=== PATIENT | male | born 1955 | race Caucasian/White ===

== ENCOUNTER 2018-10-14 08:30 | Emergency (ER) | payer BC ==
[~2018-10-14 08:30] MED LIST: ACET-1966 PO; FISH1CAP15 PO; HYDR-385 PO; KET10 PO; MULT-1335 PO; OMEP-126 PO
--- NOTE | 2018-10-14 08:33 | ER Report ---
History and Physical Time Seen By MD: 08:32 HPI/ROS CHIEF COMPLAINT: Abdominal pain HISTORY OF PRESENT ILLNESS: Patient is a 63-year-old male who states since Tuesday he's noted bilateral lower abdominal pain as well as suprapubic discomfort. He states that his current pain level is 4 out of 10 in intensity but it does go up to 80 at times. Last meal was last evening. He states that over the past 2 days the pain has become more persistent. He denies any change in his bowel movements. Denies any dysuria or hematuria. Denies fevers or chills denies nausea vomiting or diarrhea. No similar episodes in the past patient states that he has not had similar episodes in the past. REVIEW OF SYSTEMS: Constitutional: No fever, no chills. Eyes: No discharge. ENT: No sore throat. Cardiovascular: No chest pain, no palpitations. Respiratory: No cough, no shortness of breath. Gastrointestinal: Abdominal discomfort, no nausea or vomiting Genitourinary: No hematuria. Musculoskeletal: No back pain. Skin: No rashes. Neurological: No headache. Allergies: Coded Allergies: No Known Drug Allergies (Unverified , 08/23/15) Home Meds Active Scripts Hydrocodone Bit/Acetaminophen (HYDROCODON-ACETAMINOPHEN 5-325) 1 Each Tablet, 1 EACH PO Q6H PRN for PAIN, #12 TAB 0 Refills Prov:MARICRUZ WAGONER MD 10/14/18 Ondansetron Hcl (ZOFRAN) 4 Mg Tablet, 4 MG PO Q8H for Nausea, #15 TAB 0 Refills Prov:MARICRUZ WAGONER MD 10/14/18 Metronidazole (FLAGYL) 500 Mg Tablet, 500 MG PO BID, #14 TAB 0 Refills Prov:MARICRUZ WAGONER MD 10/14/18 Ciprofloxacin Hcl 500 Mg Tab (CIPRO 500 MG TAB) 500 Mg Tablet, 500 MG PO BID, #14 TAB 0 Refills Prov:MARICRUZ WAGONER MD 10/14/18 Omeprazole (OMEPRAZOLE) 20 Mg Capsule., 1 CAP PO QDAY, #30 CAP Prov:ARNULFO CARCAMO 08/23/15 Reported Medications Multivitamin With Minerals (MULTIPLE VITAMIN) 1 Each Tablet, 1 EACH PO DAILY 12/19/12 Past Medical/Surgical History Noncontributory Hx Smoking: No Smoking Status: Never Smoker Exposure to Second Hand Smoke?: No Constitutional Vital Sign - Last 24 Hours 10/14/18 10/14/18 10/14/18 10/14/18 08:30 08:37 08:39 09:00 Temp 99.6 Pulse ??? 87 86 Resp 20 B/P (MAP) 131/89 (103) 131/89 118/81 (93) Pulse Ox 95 91 O2 Delivery Room Air 10/14/18 10/14/18 10/14/18 10:00 10:30 10:35 Pulse 77 83 B/P (MAP) 127/116 (120) Pulse Ox 92 91 Physical Exam General Appearance: The patient is alert, has no immediate need for airway protection and no signs of toxicity. Eyes: Pupils equal and round no pallor or injection. ENT, Mouth: Mucous membranes are moist. Respiratory: There are no retractions, lungs are clear to auscultation. Cardiovascular: Regular rate and rhythm. [ ] Gastrointestinal: Abdomen is soft and non tender, no masses, bowel sounds normal. Neurological: Awake and alert Skin: Warm and dry, no rashes. Musculoskeletal: Neck is supple non tender. Extremities are nontender, nonswollen and have full range of motion. Medical Decision Making Data Points Result Diagram: 10/14/18 0935 10/14/18 0935 Laboratory Hematology Test 10/14/18 08:32 10/14/18 09:35 Urine Color Yellow Urine Clarity Slightly-cloudy Urine pH 5.0 pH (4.8-9.5) Urine Specific [place] 1.008 Urine Protein Negative mg/dL (NEGATIVE) Urine Glucose (UA) Negative mg/dL (NEGATIVE) Urine Ketones Negative mg/dL (NEGATIVE) Urine Blood Negative (NEGATIVE) Urine Nitrite Negative (NEGATIVE) Urine Bilirubin Negative (NEGATIVE) Urine Urobilinogen Negative mg/dL (0.2-1.9) Urine Leukocyte Esterase Negative (NEGATIVE) Urine RBC <1 /HPF (0-2/HPF) Urine WBC <1 /HPF (0-5/HPF) Urine Squamous Epithelial Cells None /LPF (</=FEW) Urine Bacteria Negative /HPF (NONE-FEW) Urine Mucus None /HPF (NONE-FEW) Red Blood Count 4.78 M/uL (4.00-5.60) Mean Corpuscular Volume 93.5 fL (80.0-96.0) Mean Corpuscular Hemoglobin 32.0 pg (26.0-33.0) Mean Corpuscular Hemoglobin Concent 34.2 g/dL (32.0-36.0) Red Cell Distribution Width 14.2 % (11.5-14.5) Mean Platelet Volume 7.4 fL (7.2-11.1) Neutrophils (%) (Auto) 73.7 % (39.4-72.5) Lymphocytes (%) (Auto) 17.2 % (17.6-49.6) Monocytes (%) (Auto) 7.6 % (4.1-12.4) Eosinophils (%) (Auto) 0.3 % (0.4-6.7) Basophils (%) (Auto) 1.2 % (0.3-1.4) Nucleated RBC Relative Count (auto) 0.0 /100WBC Neutrophils # (Auto) 7.8 K/uL (2.0-7.4) Lymphocytes # (Auto) 1.8 K/uL (1.3-3.6) Monocytes # (Auto) 0.8 K/uL (0.3-1.0) Eosinophils # (Auto) 0.0 K/uL (0.0-0.5) Basophils # (Auto) 0.1 K/uL (0.0-0.1) Nucleated RBC Absolute Count (auto) 0.00 K/uL Sodium Level 142 mmol/L (137-145) Potassium Level 3.9 mmol/L (3.5-5.0) Chloride Level 107 mmol/L (98-107) Carbon Dioxide Level 22 mmol/L (22-30) Blood Urea Nitrogen 14 mg/dl (9-21) Creatinine 1.00 mg/dl (0.66-1.25) Glomerular Filtration Rate Calc > 60.0 Random Glucose 103 mg/dl (75-110) Calcium Level 9.2 mg/dl (8.4-10.2) Total Bilirubin 0.8 mg/dl (0.2-1.3) Aspartate Amino Transf (AST/SGOT) 22 U/L (0-35) Alanine Aminotransferase (ALT/SGPT) 37 U/L (0-56) Alkaline Phosphatase 69 U/L (0-126) Total Protein 7.2 g/dl (6.3-8.2) Albumin 4.3 g/dl (3.5-5.0) Lipase 45 U/L (23-300) Chemistry Test 10/14/18 08:32 10/14/18 09:35 Urine Color Yellow Urine Clarity Slightly-cloudy Urine pH 5.0 pH (4.8-9.5) Urine Specific [place] 1.008 Urine Protein Negative mg/dL (NEGATIVE) Urine Glucose (UA) Negative mg/dL (NEGATIVE) Urine Ketones Negative mg/dL (NEGATIVE) Urine Blood Negative (NEGATIVE) Urine Nitrite Negative (NEGATIVE) Urine Bilirubin Negative (NEGATIVE) Urine Urobilinogen Negative mg/dL (0.2-1.9) Urine Leukocyte Esterase Negative (NEGATIVE) Urine RBC <1 /HPF (0-2/HPF) Urine WBC <1 /HPF (0-5/HPF) Urine Squamous Epithelial Cells None /LPF (</=FEW) Urine Bacteria Negative /HPF (NONE-FEW) Urine Mucus None /HPF (NONE-FEW) White Blood Count 10.5 k/uL (4.5-11.0) Red Blood Count 4.78 M/uL (4.00-5.60) Hemoglobin 15.3 g/dL (14.0-18.0) Hematocrit 44.7 % (42.0-52.0) Mean Corpuscular Volume 93.5 fL (80.0-96.0) Mean Corpuscular Hemoglobin 32.0 pg (26.0-33.0) Mean Corpuscular Hemoglobin Concent 34.2 g/dL (32.0-36.0) Red Cell Distribution Width 14.2 % (11.5-14.5) Platelet Count 187 K/uL (150-450) Mean Platelet Volume 7.4 fL (7.2-11.1) Neutrophils (%) (Auto) 73.7 % (39.4-72.5) Lymphocytes (%) (Auto) 17.2 % (17.6-49.6) Monocytes (%) (Auto) 7.6 % (4.1-12.4) Eosinophils (%) (Auto) 0.3 % (0.4-6.7) Basophils (%) (Auto) 1.2 % (0.3-1.4) Nucleated RBC Relative Count (auto) 0.0 /100WBC Neutrophils # (Auto) 7.8 K/uL (2.0-7.4) Lymphocytes # (Auto) 1.8 K/uL (1.3-3.6) Monocytes # (Auto) 0.8 K/uL (0.3-1.0) Eosinophils # (Auto) 0.0 K/uL (0.0-0.5) Basophils # (Auto) 0.1 K/uL (0.0-0.1) Nucleated RBC Absolute Count (auto) 0.00 K/uL Glomerular Filtration Rate Calc > 60.0 Calcium Level 9.2 mg/dl (8.4-10.2) Total Bilirubin 0.8 mg/dl (0.2-1.3) Aspartate Amino Transf (AST/SGOT) 22 U/L (0-35) Alanine Aminotransferase (ALT/SGPT) 37 U/L (0-56) Alkaline Phosphatase 69 U/L (0-126) Total Protein 7.2 g/dl (6.3-8.2) Albumin 4.3 g/dl (3.5-5.0) Lipase 45 U/L (23-300) Urinalysis Test 10/14/18 08:32 Urine Color Yellow Urine Clarity Slightly-cloudy Urine pH 5.0 pH (4.8-9.5) Urine Specific [place] 1.008 Urine Protein Negative mg/dL (NEGATIVE) Urine Glucose (UA) Negative mg/dL (NEGATIVE) Urine Ketones Negative mg/dL (NEGATIVE) Urine Blood Negative (NEGATIVE) Urine Nitrite Negative (NEGATIVE) Urine Bilirubin Negative (NEGATIVE) Urine Urobilinogen Negative mg/dL (0.2-1.9) Urine Leukocyte Esterase Negative (NEGATIVE) Urine RBC <1 /HPF (0-2/HPF) Urine WBC <1 /HPF (0-5/HPF) Urine Squamous Epithelial Cells None /LPF (</=FEW) Urine Bacteria Negative /HPF (NONE-FEW) Urine Mucus None /HPF (NONE-FEW) EKG/Imaging Imaging FACILITY: [facility] PATIENT NAME: Phi Arzate : 1955 MR: [id number] V: [id number] EXAM DATE: [id number] ORDERING PHYSICIAN: MARICRUZ WAGONER TECHNOLOGIST: Location: [facility] [place] Patient: Phi Arzate : 1955 Visit/Account:[id number] Date of Sevice: 10/14/2018 CT scan of the abdomen and pelvis with contrast. HISTORY: Suprapubic pain. COMPARISON: None. 3 mm and [address] images were obtained of the abdomen and pelvis using 75 mL intravenous Isovue-370. No oral contrast. One of the following dose optimization techniques was utilized in the performance of this exam: Automated exposure control; adjustment of the mA and/or kV according to the patient's size; or use of an iterative reconstruction technique. Specific details can be referenced in the facility's radiology CT exam operational policy. FINDINGS: Minimal streaky densities are present in the lung bases. The liver and spleen are normal in size. The gallbladder is incompletely distended. The bile ducts are unremarkable. The pancreas is normal in size. The portal vein is patent. The kidneys and adrenal glands are normal in size. No hydronephrosis. The abdominal aorta is normal in size and mildly calcified. No bulky abdominal or pelvic adenopathy. A moderate number of diverticula are scattered in the sigmoid colon. Diffuse mural thickening is present in the sigmoid colon from the rectosigmoid junction to the junction with the descending colon. Moderate stranding is present in the pericolonic fat of the sigmoid colon. No discrete pericolonic fluid collections. The inflamed sigmoid colon causes mild compression of the left side of the urinary bladder. The prostate gland is minimally heterogeneous and upper limits of normal in size. Degenerative changes are present in the spine the appendix is normal in size. IMPRESSION: Moderate colonic diverticulosis. Sigmoid diverticulitis. An underlying neoplastic process cannot be completely excluded. Negative for evidence of peridiverticular abscess. Results were discussed with MARICRUZ WAGONER at 10/14/2018 10:46 AM. Report Dictated By: To Jolley MD at 10/14/2018 10:38 AM Report E-Signed By: To Jolley MD at 10/14/2018 10:48 AM WSN:[id number] ED Course/Re-evaluation ED Course 10/14/2018 9:04:25 am patient with lower abdominal pain differential diagnosis includes but is not limited to sigmoid diverticulitis, cystitis, colitis, appendicitis. Plan at this time will be abdominal workup along with CT scan of the abdomen and pelvis. Decision to Disposition Date: Oct 14, 2018 Decision to Disposition Time: 10:57 Depart Departure Latest Vital Signs Vital Signs Date Time Temp Pulse Resp B/P (MAP) Pulse Ox O2 Delivery O2 Flow Rate FiO2 10/14/18 10:35 83 91 10/14/18 10:30 127/116 (120) 10/14/18 08:39 99.6 20 Room Air Impression: Primary Impression: Diverticulitis Condition: Stable Disposition: HOME OR SELF-CARE Referrals: ELSI ENCARNACION MD (PCP) folow up in one week if symptoms persist New Scripts Ondansetron Hcl (ZOFRAN) 4 Mg Tablet 4 MG PO Q8H for Nausea, #15 TAB 0 Refills Prov: MARICRUZ WAGONER MD 10/14/18 Metronidazole (FLAGYL) 500 Mg Tablet 500 MG PO BID, #14 TAB 0 Refills Prov: MARICRUZ WAGONER MD 10/14/18 Ciprofloxacin Hcl 500 Mg Tab (CIPRO 500 MG TAB) 500 Mg Tablet 500 MG PO BID, #14 TAB 0 Refills Prov: MARICRUZ WAGONER MD 10/14/18 Patient Instructions: Diverticulitis (DC), Diverticulitis Diet (ED) Additional Instructions: Return to the emergency department if her symptoms worsen at any time including fever, worsening abdominal pain or if you develop bloody diarrhea. MARICRUZ WAGONER MD Oct 14, 2018 08:33
[2018-10-14] MEDS ORDERED: NS(*) 0.9% 1000 ML BAG 1,000 ML IV ONE (08:56)
[2018-10-14] MEDS ORDERED: IOPAMIDOL 76% 100 ML INFUS BTL 100 ML ONE (09:10)
[2018-10-14 09:48] LABS: PLATELET COUNT, AUTOMATED 187 K/uL (150-450)
[2018-10-14 10:30] VITALS: BP 127/116
--- NOTE | 2018-10-14 10:52 | RADIOLOGY IMAGING REPORT ---
FACILITY: [facility] [place] PATIENT NAME: Phi Arzate : 1955 MR: [id number] V: [id number] EXAM DATE: ORDERING PHYSICIAN: MARICRUZ WAGONER TECHNOLOGIST: Location: [facility] Patient: Phi Arzate : 1955 Visit/Account:[id number] Date of Sevice: 10/14/2018 CT scan of the abdomen and pelvis with contrast. HISTORY: Suprapubic pain. COMPARISON: None. 3 mm and [address] images were obtained of the abdomen and pelvis using 75 mL intravenous I sovue-370. No oral contrast. One of the following dose optimization techniques was utilized in the pe rformance of this exam: Automated exposure control; adjustment of the mA and/or kV according to the p atient's size; or use of an iterative reconstruction technique. Specific details can be referenced in the facility's radiology CT exam operational policy. FINDINGS: Minimal streaky densities are present in the lung bases. The liver and spleen are normal in size. The gallbladder is incompletely distended. The bile ducts ar e unremarkable. The pancreas is normal in size. The portal vein is patent. The kidneys and adrenal gl ands are normal in size. No hydronephrosis. The abdominal aorta is normal in size and mildly calcifie d. No bulky abdominal or pelvic adenopathy. A moderate number of diverticula are scattered in the sigmoid colon. Diffuse mural thickening is pres ent in the sigmoid colon from the rectosigmoid junction to the junction with the descending colon. Mo derate stranding is present in the pericolonic fat of the sigmoid colon. No discrete pericolonic flui d collections. The inflamed sigmoid colon causes mild compression of the left side of the urinary garo dder. The prostate gland is minimally heterogeneous and upper limits of normal in size. Degenerative changes are present in the spine the appendix is normal in size. IMPRESSION: Moderate colonic diverticulosis. Sigmoid diverticulitis. An underlying neoplastic process cannot be completely excluded. Negative for evidence of peridiverticular abscess. Results were discussed with MARICRUZ WAGONER at 10/14/2018 10:46 AM. Report Dictated By: To Jolley MD at 10/14/2018 10:38 AM Report E-Signed By: To Jolley MD at 10/14/2018 10:48 AM WSN:[id number]
[2018-10-14] MEDS ORDERED: CIPR-344 PO ×2 (11:00→11:13)
[2018-10-14] MEDS ORDERED: METR-1 PO ×2 (11:00→11:13)
[2018-10-14] MEDS ORDERED: ONDA4TAB97 PO ×2 (11:00→11:13)
[2018-10-14] MEDS ORDERED: LOR5/325 PO ×2 (11:00→11:13)
== END 2018-10-14 11:09 | disposition home or self-care (01) ==
LOC: ER 08:36
DX: K57.92 Diverticulitis of intestine, part unspecified, without perforation or abscess without bleeding (principal)
CPT/HCPCS: 74177; 81001; 83690; 85025; 96360; 96361; 99284; J7030; Q9967; 82040; 82247; 82310; 82374; 82435; 82565; 82947; 84075; 84132; 84155; 84295; 84450; 84460; 84520